=== PATIENT | female | born 1935 | race Caucasian/White ===

== ENCOUNTER → 2016-08-13 | Outpatient (CLI) | payer MEDICARE | END | disposition home or self-care (01) | LOC: RADNMMAIN 07:01 | PROVIDERS: ATTEND Internal Medicine Gastroenterology | DX: Z53.9 Procedure and treatment not carried out, unspecified reason (principal) ==

== ENCOUNTER → 2016-08-28 | Outpatient (CLI) | payer MEDICARE ==
[2016-08-28 13:45] LABS: Appearance,Urine Clear (Clear); Bilirubin,Urine Negative (Negative); Glucose,Urine (UA) Negative (Negative); Ketones,Urine Negative (Negative); Leukocyte Esterase,Urine Negative (Negative); Nitrite,Urine Negative (Negative); PH, Urine 7.5 (5.0-8.0); Protein,Urine Negative (Negative); Specific Gravity,Urine 1.018 (1.001-1.035); UA Billing (MACRO vs. MICRO) CHEM
[2016-08-28 13:48] LABS: Basophils % (A) 0 %; CH 28.4; CHCM 30.8; Eosinophils # (A) 0.4 k/uL (0-0.7); Eosinophils % (A) 6 %; HCT 37.4 % (34.0-46.0); HDW 2.47; HGB 11.9 gm/dL (11.4-16.0); Hypochromasia Slight; Luc # (Auto) 0.22; Luc % (Auto) 3; Lymphocytes # (A) 2.9 k/uL (1.0-4.8); Lymphocytes % (A) 40 %; MCH 29.6 pg (25.0-35.0); MCHC 31.9 g/dL (31.0-37.0); MCV 92.8 fL (80.0-100.0); Mean Platelet Volume 6.8; Monocytes # (A) 0.4 k/uL (0-1.0); Monocytes % (A) 5 %; Neutrophils # (A) 3.4 k/uL (1.3-7.7); Neutrophils % (A) 46 %; RBC 4.03 m/uL (3.80-5.40); RDW 14.8 % (11.5-15.5); WBC 7.3 k/uL (3.8-10.6); WBC (Perox) 7.48
--- NOTE | 2016-08-28 14:22 | CT ---
EXAMINATION TYPE: CT abdomen pelvis wo con DATE OF EXAM: 08/28/2016 1:28 PM COMPARISON: NONE INDICATION: Lower abdominal pain. Low back pain. DLP: 714 mGycm, Automated exposure control for dose reduction was used. CONTRAST: 0 mL of Omnipaque 300. Study performed without Oral Contrast TECHNIQUE: Axial images were obtained from above the diaphragm to the pubic rami in the axial plane a t 5 mm thick sections. Reconstructed images are reviewed on the computer in the coronal plane. FINDINGS: Limited CT sections are obtained the lung bases. The lung bases are clear. CT ABDOMEN: Liver: There are a few scattered calcified granuloma present. No discrete masses or cysts are evident . Spleen: Calcified granuloma within the spleen Pancreas: Normal Adrenal glands: The adrenal glands are normal. Gallbladder: Surgically absent Kidneys: No masses are evident. No hydronephrosis is present. There is a 0.2 cm calcification at th e inferior pole left kidney. A cortical calcification measuring 0.3 cm in the mid left kidney. Delay ed images were obtained through the kidneys, which remain unremarkable. Aorta: Vascular calcification is within the aorta. Inferior vena cava: Normal. CT PELVIS: Loops of bowel within the abdomen and pelvis are normal. Study is performed without oral contrast . Scattered diverticuli within the sigmoid colon. Appendix: Normal as visualized. Urinary bladder: Normal. Genitourinary structures: Uterus and ovaries are not identified. No free fluid is within the pelvis. Osseous structures: No suspicious lytic or sclerotic lesions. Postsurgical changes are within the lum bar spine. Scoliosis is present. IMPRESSIONS: 1. Nonobstructing left renal stones. 2. Diverticulosis without acute diverticulitis.
== END | disposition home or self-care (01) ==
LOC: RADCTMAIN 12:44
PROVIDERS: ATTEND Physical Medicine & Rehabilitation
DX: M96.1 Postlaminectomy syndrome, not elsewhere classified (principal); M51.17 Intervertebral disc disorders with radiculopathy, lumbosacral region; M46.1 Sacroiliitis, not elsewhere classified; M47.817 Spondylosis without myelopathy or radiculopathy, lumbosacral region; N20.0 Calculus of kidney
CPT/HCPCS: 36415; 74176; 81003; 85025; 87086

== ENCOUNTER → 2017-01-21 | Outpatient (CLI) | payer MEDICARE ==
[2017-01-21 12:46] LABS: Blood Urea Nitrogen 23 mg/dL (7-17); Non-African American GFR(MDRD) >60 (>60 ml/min/1.73 sqM)
--- NOTE | 2017-01-21 14:36 | CT ---
EXAMINATION TYPE: CT abdomen pelvis w con DATE OF EXAM: 01/21/2017 HISTORY: Patient complains of epigastric pain, nausea, and vomiting. CT DLP: 367.1mGycm Automated Exposure Control for Dose Reduction was Utilized. CONTRAST: CT scan of the abdomen and pelvis is performed with IV Contrast, patient injected with 100 mL of Omni paque 300. COMPARISON: None. FINDINGS: LUNG BASES: No significant abnormality is appreciated. Minimal subsegmental dependent atelectasis is incidentally noted. LIVER/GB: Gallbladder is surgically absent. Punctate granuloma is seen within the hepatic parenchyma. Remainder the hepatic parenchyma is unremarkable. PANCREAS: No significant abnormality is seen. SPLEEN: Scattered granulomas are seen within the splenic parenchyma. ADRENALS: No significant abnormality is seen. KIDNEYS: Punctate nonobstructing left midpole renal calculus is present on image 28. No evidence of h ydronephrosis within either kidney. BOWEL: Numerous loops of small bowel are seen stacked upon each other but are nondilated containing c ontrast throughout. The appendix is partially seen retrocecal and within normal limits. Moderate stoo l burden is appreciated. No pericolonic fat stranding is seen. LYMPH NODES: No greater than 1cm abdominal or pelvic lymph nodes are appreciated. VASCULATURE: Abdominal aorta is of normal course and caliber with moderate atheromatous changes of th e abdominal aorta and its branches. OSSEOUS STRUCTURES: No significant abnormality is seen. Scoliotic curvature, dextroconvex is seen of the lumbar spine with surgical fixation and degenerative changes. IMPRESSION: No evidence of bowel obstruction. Mild small bowel ileus is suggested. 2. Benign granulomatous changes of the spleen and abdomen. 3. Nonobstructing punctate left midpole renal calculus.
== END | disposition home or self-care (01) ==
LOC: RADCTMAIN 11:55
PROVIDERS: ATTEND Internal Medicine Gastroenterology
DX: N20.0 Calculus of kidney (principal); D73.89 Other diseases of spleen; K31.89 Other diseases of stomach and duodenum; R63.4 Abnormal weight loss
CPT/HCPCS: 82565; 84520; 74177; 36415; Q9967

== ENCOUNTER → 2018-04-03 | Outpatient (CLI) | payer MEDICARE ==
[~2018-04-03] MED LIST: REGADENOSON 0.4 MG/5 ML SYRINGE IV ONE
--- NOTE | 2018-04-03 11:56 | EST ---
EXERCISE STRESS DATE OF SERVICE: 04/03/2018 AGE: 82 SEX: Female HT: 5'0" WT: 115 pounds PROTOCOL: Lexiscan Cardiolite STAGE: DURATION OF EXERCISE: HEART RATE REST: 65 BLOOD PRESSURE REST: 145/66 MAXIMUM HEART RATE ACHIEVED: 89 MAXIMUM BLOOD PRESSURE: 155/59 85% MPHR: 117 100% MPHR: 138 METS: INDICATION: Shortness of breath. CLINICAL INFORMATION: Baseline EKG shows sinus rhythm, normal axis, normal intervals. Patient was given intravenous Lexiscan as per protocol. Did not have chest pain or diagnostic ST-segment depression. CONCLUSIONS: 1. Negative stress test by EKG criteria. 2. Cardiolite portion stress test will be reported separately. MMODL / IJN: [id number] /
--- NOTE | 2018-04-03 14:11 | NM ---
EXAMINATION TYPE: NM stress lexiscan cardiolite DATE OF EXAM: 04/03/2018 COMPARISON: NONE HISTORY: Shortness of breath hypertension difficulty in breathing TECHNIQUE: After the intravenous administration of 10.04 mCi Tc 99m Sestamibi - Cardiolite resting S PECT images acquired 45 minutes post injection. The patient received 0.4mg Lexiscan, 23.9 mCi Tc 99m Sestamibi - Stress images obtained [address] injection FINDINGS: No fixed or reversible perfusion defects are evident. Gated wall motion is normal. The ejection fract ion of 70% is normal. IMPRESSION: 1. Normal stress myocardial study.
== END | disposition home or self-care (01) ==
LOC: RADNMMAIN 07:54
PROVIDERS: ATTEND Nurse Practitioner Family
DX: R06.02 Shortness of breath (principal)
CPT/HCPCS: 93017; 78452; A9500; J2785

== ENCOUNTER → 2018-07-28 | Outpatient (CLI) | payer MEDICARE | END | disposition home or self-care (01) | LOC: CPPFTMAIN 14:25 | PROVIDERS: ATTEND Internal Medicine Cardiovascular Disease | DX: R94.2 Abnormal results of pulmonary function studies (principal); R06.02 Shortness of breath | CPT/HCPCS: 94060; 94726; 94729 ==

== ENCOUNTER 2019-03-10 12:11 | Day surgery (SDC) | payer MEDICARE ==
[2019-03-10 12:35] VITALS: TEMP 97.8
[2019-03-10 14:07] VITALS: BP 135/70; PULSE 66; RESP 16
--- NOTE | 2019-03-10 14:37 | US ---
EXAMINATION TYPE: US FNA first lesion, US biopsy lymph node DATE OF EXAM: 03/10/2019 HISTORY: Right neck mass. FINDINGS: Maximal barrier technique was utilized. The skin overlying a suitable path to the patient' s mass in the right neck was localized with ultrasound and the overlying skin prepped and draped. Ul trasound was utilized with sterile technique. Lidocaine was used for local anesthesia. A single pass with a 25-gauge needle and subsequently 21-gauge needle was made under ultrasound guidance into the mass and aspirated specimen submitted to cytology. A skin nadeem was made with a scalpel. An 18-gauge needle was advanced under direct ultrasound guidance and core specimen obtained of the mass, second c ore was made. Specimen submitted to Pathology. Following the procedure, hemostasis achieved and the patient is discharged in stable condition without complication. IMPRESSION:STATUS POST ULTRASOUND GUIDED CORE BIOPSY AND FINE-NEEDLE ASPIRATION OF right neck MASS, P ATHOLOGY IS PENDING. THIS PROCEDURE IS PERFORMED BY THE UNDERSIGNED.
--- NOTE | 2019-03-10 16:13 | US ---
EXAMINATION TYPE: US thyroid st tissue head/neck DATE OF EXAM: 03/10/2019 COMPARISON: NONE CLINICAL HISTORY: R22.1 Right Neck Mass. Lump right neck Multiple hypoechoic areas noted bilateral neck. Largest = 2.3 x 1.2 x 2.4cm on the right These are atypical for normal lymph nodes. Additional workup with contrast CT soft tissue neck is rec ommended. These could be metastatic lymph nodes. Complex cysts would be more unusual. IMPRESSION: Complex hypoechoic areas within the left neck are suspicious for abnormal lymphadenopath y. The patient is subsequently biopsied.
--- NOTE | 2019-03-16 08:20 | CDI ---
Date: 03.16.19 CDS/Scutcher Tender Name: Nellie Hogue Phone: If any questions, call Kourtney Go System Sales Consultant at [phone] Patient Name: Brenda Danielle Admit Date: 03.10.19 Discharge Date: 03.10.19 ATTENTION: The [facility] Coding Staff appreciate your assistance in clarifying documentation. Please respond to the clarification below the line at the bottom and electronically sign. The [facility] Coding staff will review the response and follow-up if needed. Please note: Queries are made part of the Legal Health Record. If you have any questions, please contact the System Sales Consultant. 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 Please specify the type of malignancy. Thank you for your kind consideration. MTDD
--- NOTE | 2019-03-18 10:19 | CDI ---
Date: 03.18.19 CDS/Program Director/Air Personality Name: Nellie Hogue Phone: If any questions, call Kourtney Go City Councilman at [phone] Patient Name: Brenda Danielle Acct Number: [id number] Admit date: 03.10.19 Discharge date: 03.10.19 ATTENTION: The [facility] Coding Staff appreciate your assistance in clarifying documentation. Please respond to the clarification below the line at the bottom and electronically sign. The [facility] Coding Staff will review the response and follow up if needed. Please note: Quereies are made part of the Legal Health Record. If you have any questions, please contact the City Councilman. Dear Dr. 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 Jain agrees with the diagnosis of malignancy, but the specific type of malignancy is not mentioned. Please specify the type of Malignancy. Thank you for your kind consideration. MTDD
== END 2019-03-10 14:00 | disposition home or self-care (01) ==
LOC: RADUSMAIN 12:11
PROVIDERS: ATTEND Otolaryngology
DX: R22.1 Localized swelling, mass and lump, neck (principal)
CPT/HCPCS: 10005; 38505; 76536; 76942; 88173; 88305

== ENCOUNTER → 2019-04-09 | Outpatient (CLI) | payer MEDICARE ==
[2019-04-09 10:24] LABS: African American GFR (CKD) >90 (>60 ml/min/1.73 sqM); Blood Urea Nitrogen 15 mg/dL (7-17)
--- NOTE | 2019-04-09 12:10 | CT ---
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 CT Chest: LUNGS: The lungs are clear and free of infiltrate or atelectasis. No pulmonary nodule or mass is det ected. No pleural effusion or CT evidence of interstitial lung disease. MEDIASTINUM: Thoracic aorta is of normal caliber. The heart is not enlarged. No evidence for media stinal mass or adenopathy. HILAR STRUCTURES: No evidence for mass. No hilar adenopathy is appreciated. OTHER: Multiple enlarged lymph nodes right axilla totaling 8-10 in number measuring up to 4.1 cm shor t axis. 1 enlarged lymph node left axilla measuring 1 cm. Adjacent to the left chest wall anteriorly there is an 8 mm nodule noted. CONTRAST CT ABDOMEN AND PELVIS FINDINGS: LIVER/GB: There is evidence of hepatic steatosis. No calcified gallstones. No space occupying hepa tic lesion. Biliary tree is of normal caliber. PANCREAS: No inflammation. No distinct mass. SPLEEN: No splenic enlargement. No lesion seen. ADRENALS: No nodule. No thickening. KIDNEYS/BLADDER: No hydronephrosis. No nephrolithiasis. No disctinct renal mass. BOWEL: Normal appendix. Normal bowel caliber. No inflammation. GENITAL ORGANS: No gross abnormality. LYMPH NODES: No greater than 1cm abdominal or pelvic lymph nodes are appreciated. AORTA: No significant abnormality. OSSEOUS STRUCTURES: Postoperative and degenerative changes lumbar spine. OTHER: No significant additional abnormality is seen. IMPRESSION: 1. Multiple enlarged lymph nodes right axilla totaling 8-10 in number measuring up to 4.1 cm short ax is. 1 enlarged lymph node left axilla measuring 1 cm. Adjacent to the left chest wall anteriorly ther e is an 8 mm nodule noted. 2. Hepatic steatosis.
== END | disposition home or self-care (01) ==
LOC: RADCTMAIN 09:00
PROVIDERS: ATTEND Internal Medicine Hematology & Oncology
DX: K76.0 Fatty (change of) liver, not elsewhere classified (principal); R22.2 Localized swelling, mass and lump, trunk; C91.10 Chronic lymphocytic leukemia of B-cell type not having achieved remission
CPT/HCPCS: 82565; 84520; 71260; 74177; 36415; Q9967 ×2

== ENCOUNTER 2019-05-14 00:38 | Observation (INO) | payer MEDICARE ==
[2019-05-14 00:50] LABS: Glucose,Whole Blood 136 mg/dL (75-99)
[2019-05-14 01:05] LABS: Basophils # (A) 0.2 k/uL (0-0.2); Basophils % (A) 2 %; Eosinophils # (A) 0.3 k/uL (0-0.7); Eosinophils % (A) 2 %; HCT 42.4 % (34.0-46.0); HGB 13.6 gm/dL (11.4-16.0); Lymphocytes # (A) 2.6 k/uL (1.0-4.8); Lymphocytes % (A) 18 %; MCH 30.4 pg (25.0-35.0); Mean Platelet Volume 7.5; Monocytes # (A) 0.7 k/uL (0-1.0); Monocytes % (A) 5 %; Neutrophils # (A) 9.9 k/uL (1.3-7.7); Neutrophils % (A) 71 %; Platelet Count 215 k/uL (150-450); RBC 4.46 m/uL (3.80-5.40)
[2019-05-14 01:15] LABS: ALT 10 U/L (4-34); AST 45 U/L (14-36); African American GFR (CKD) >90 (>60 ml/min/1.73 sqM); Albumin 4.3 g/dL (3.5-5.0); Alkaline Phosphatase 160 U/L (38-126); Anion Gap 11 mmol/L; Blood Urea Nitrogen 14 mg/dL (7-17); Calcium 9.4 mg/dL (8.4-10.2); Carbon Dioxide 21 mmol/L (22-30); Chloride 104 mmol/L (98-107); Glucose 141 mg/dL (74-99); Magnesium 1.4 mg/dL (1.6-2.3); Non-African American GFR(CKD) 88 (>60 ml/min/1.73 sqM); Potassium 4.2 mmol/L (3.5-5.1); Sodium 136 mmol/L (137-145); Total Bilirubin 0.9 mg/dL (0.2-1.3); Total Protein 7.2 g/dL (6.3-8.2)
[2019-05-14 01:16] LABS: Partial Thromboplastin Time 23.9 sec (22.0-30.0); Prothrombin Time 10.3 sec (9.0-12.0)
--- NOTE | 2019-05-14 01:23 | XR ---
EXAM: XR Chest, 1 View CLINICAL HISTORY: : fall TECHNIQUE: Frontal view of the chest. COMPARISON: No relevant prior studies available. FINDINGS: Lungs: Unremarkable. No consolidation. Pleural space: Unremarkable. No pneumothorax. Heart: Unremarkable. No cardiomegaly. Mediastinum: Unremarkable. Bones/joints: Unremarkable. IMPRESSION: No acute abnormality identified
[2019-05-14] MEDS ORDERED: levETIRAcetam IV 1,000 MG in SALINE 1 100ML.BAG IVPB STA (01:33)
[2019-05-14 01:35] VITALS: BP 173/93
--- NOTE | 2019-05-14 01:35 | CT ---
EXAM: CT Head Without Intravenous Contrast CLINICAL HISTORY: : weakness TECHNIQUE: Axial computed tomography images of the head/brain without intravenous contrast. CTDI is 45.2 mGy and DLP is 1335.5 mGy-cm. This CT exam was performed using one or more of the following dose reduction techniques: automated exposure control, adjustment of the mA and/or kV according to patient size, and/or use of iterative reconstruction technique. COMPARISON: No relevant prior studies available. FINDINGS: Brain: 1.7 mm midline shift from [id number] there is a 9 mm thick subdural collection on the left there is subarachnoid hemorrhage noted. There is a large parenchymal hematoma measures 5.5 x 5.8 x 4.5 cm with a total hematoma volume of 71 mL. Smaller parenchymal hemorrhage noted in the frontal lobe measuring 1 cm x 8 mm in size. There is effacement of the left lateral ventricle. There is subdural tentorial collection there are multiple punctate areas of hemorrhage noted on the right as well as in the parenchyma with a thin subdural collection measuring 4.5 mm at its thickest margin. Smaller Ventricles: Unremarkable. No ventriculomegaly. Bones/joints: Fracture of the left zygomatic arch and in the to the sphenoid wing on the left Soft tissues: Unremarkable. Sinuses: Air-fluid level noted in the left maxillary sinus no evidence for fracture of the [place] of maxillary sinus seen on the study. This may represent sinusitis changes.. Mastoid air cells: Unremarkable as visualized. No mastoid effusion. IMPRESSION: 1.7 mm of midline shift from [id number] with a 5.5 x 5.8 x 4.5 cm left temporal lobe and frontal lobe hematoma additionally there is a subdural collection measuring up to 9 mm thick on the left additionally subarachnoid hemorrhage and other areas of parenchymal hemorrhage noted both on the left and the right there is a thin subdural on the right measuring 4.5 mm thick at its thickest margin. Minimally displaced fracture left zygomatic arch with based minimally displaced fracture in the left sphenoid wing The mastoids are clear as is the tympanic space EXAM: CT Cervical Spine Without Intravenous Contrast CLINICAL HISTORY: weakness TECHNIQUE: Axial computed tomography images of the cervical spine without intravenous contrast. CTDI is 25.2 mGy and DLP is 1335.5 mGy-cm. This CT exam was performed using one or more of the following dose reduction techniques: automated exposure control, adjustment of the mA and/or kV according to patient size, and/or use of iterative reconstruction technique. COMPARISON: No relevant prior studies available. FINDINGS: Vertebrae: Unremarkable. No acute fracture. Discs/spinal canal/neural foramina: No acute findings. No spinal canal stenosis. Soft tissues: Extensive adenopathy in the left and right side of the neck and supraclavicular region with lymph nodes measuring up to 1.3 cm short axis and 2.2 cm long axes clinical correlation required IMPRESSION: No evidence for fracture or malalignment of cervical spine. Chronic degenerative changes. Extensive adenopathy noted in the neck and supraclavicular region. <MYCVCSECTION> Communications: 05/14/19 01:46 Call Doctor Regarding Intracranial Hemorrhage, called Dr. Sparrow on 05/14 01:46 (-05:00)
[2019-05-14 01:42] LABS: Appearance,Urine Clear (Clear); Bilirubin,Urine Negative (Negative); Blood,Urine Negative (Negative); Color,Urine Light Yellow; Glucose,Urine (UA) Negative (Negative); Ketones,Urine Negative (Negative); Leukocyte Esterase,Urine Negative (Negative); Nitrite,Urine Negative (Negative); Protein,Urine Negative (Negative); Specific Gravity,Urine 1.007 (1.001-1.035); Urobilinogen,Urine <2.0 mg/dL (<2.0)
[2019-05-14] MEDS ORDERED: MORPHINE SULFATE 4 MG/ML SYRINGE IVP STA ×2 (01:48→01:51)
[2019-05-14] MEDS ORDERED: LORazepam 2 MG/ML INJ IV STA (01:59)
[2019-05-14] MEDS: niCARdipine 20 MG in SODIUM CHLORIDE 0.9% 192 ML IV SCH ×2 (02:00→06:13)
--- NOTE | 2019-05-14 02:42 | ED ---
General Adult HPI - General Chief complaint: Trauma Stated complaint: unresponsive Time Seen by Provider: 05/14/19 00:40 Source: EMS, RN notes reviewed Mode of arrival: EMS Limitations: altered mental status, physical limitation - History of Present Illness Initial comments: 83-year-old female presents from home transported by EMS. Patient was found in her bedroom with significant amount of dried blood on the left side of her head carpet. His believe she had a dresser. Unknown down time. She had agonal respirations according to EMS was intubated by EMS prior to arrival. She was noted to have a nonreactive blown left pupil. No spontaneous movement according to EMS to painful stimuli. 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 Unknown how long the patient had been unresponsive - Related Data Home Medications Medication Instructions Recorded Confirmed Aspirin 81 mg PO DAILY 01/11/14 03/10/19 Metoprolol Succinate [Toprol XL] 50 mg PO DAILY 01/11/14 03/10/19 DULoxetine HCL [Cymbalta] 30 mg PO DAILY 01/03/15 03/10/19 Trolamine Salicylate [Aspercreme] 177.4 ml TP DAILY PRN 01/03/15 03/10/19 traMADol HCl [Ultram] 50 mg PO Q6H PRN 01/03/15 03/10/19 Acetaminophen [Tylenol] 500 mg PO Q4-6H PRN 01/04/15 03/10/19 Atorvastatin [Lipitor] 40 mg PO DAILY 02/22/19 03/10/19 Cholecalciferol [Vitamin D3 (25 1 tab PO DAILY 02/22/19 03/10/19 Mcg = 1000 Iu)] Ferrous Sulfate [Iron (65 MG 1 tab PO DAILY 02/22/19 03/10/19 Elemental)] Lisinopril [Zestril] 5 mg PO DAILY 02/22/19 03/10/19 Omeprazole 20 mg PO BID 02/22/19 03/10/19 Non Formulary Drug 1 each PO ONCE 03/10/19 03/10/19 Allergies Allergy/AdvReac Type Severity Reaction Status Date / Time No Known Allergies Allergy Verified 03/10/19 12:23 Review of Systems ROS Statement: Those systems with pertinent positive or pertinent negative responses have been documented in the HPI. ROS Other: All systems not noted in ROS Statement are negative. Past Medical History Past Medical History: Coronary Artery Disease (CAD), GERD/Reflux, Hyperlipidemia, Hypertension, Osteoarthritis (OA) History of Any Multi-Drug Resistant Organisms: None Reported Past Surgical History: Back Surgery, Breast Surgery, Cholecystectomy, Heart Catheterization With Stent, Hernia Repair, Hysterectomy, Tonsillectomy Additional Past Surgical History / Comment(s): breast reduction, back fusion w/rods, neurostimulator insertion and then removal Past Anesthesia/Blood Transfusion Reactions: No Reported Reaction Date of Last Stent Placement:: 1999 Past Psychological History: No Psychological Hx Reported Smoking Status: Former smoker Past Alcohol Use History: Daily Past Drug Use History: None Reported - Past Family History Brother(s) Family Medical History: Cancer Additional Family Medical History / Comment(s): lung General Exam Limitations: altered mental status, physical limitation General appearance: obtunded Head exam: Absent: atraumatic (large left frontal and temporal hematoma) Eye exam: Absent: PERRL (left pupil is 7 mm nonreactive,right pupil 3 mm and nonreactive) ENT exam: Present: other (significant amount of blood in the left naris, blood from around the ET tube) Respiratory exam: Present: respiratory distress (patient is being bagged by EMS, ET tube is at 25 cm at the lip, this is withdrawn. She has breath sounds bilaterally with BVM) Cardiovascular Exam: Present: normal rhythm, bradycardia GI/Abdominal exam: Present: soft. 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 ] Respiratory Rate Blood Pressure 141/75 Blood Pressure 169/105 155/103 [Right Arm] O2 Sat by Pulse 100 99 99 Oximetry 05/14/19 05/14/19 05/14/19 01:10 01:20 01:35 Pulse Rate Pulse Rate [ 82 76 79 Spinner [employer] Pipe ] Respiratory 05 06 12 Rate Blood Pressure Blood Pressure 138/78 189/104 173/93 [Right Arm] O2 Sat by Pulse 99 99 98 Oximetry 12/20/19 12/20/19 12/20/19 02:32 03:19 04:35 Pulse Rate 74 60 58 L Pulse Rate [ Spinner [employer] Pipe ] Respiratory 24 22 Rate Blood Pressure Blood Pressure [Right Arm] O2 Sat by Pulse Oximetry EKG Findings - EKG Comments: EKG Findings:: EKG likely sinus rhythm rate of 76, VA interval 132, QRS duration 82, QTC 423 Medical Decision Making - Medical Decision Making 83-year-old female presenting in extremis. Patient intubated by EMS with suspected intracranial hemorrhage. She has a nonreactive dilated left pupil. She has agonal respirations. She was posturing at the time of initial evaluation. Workup was initiated including head CT which shows very large i ntracranial hemorrhage with mass effect, midline shift both intraparenchymal, subarachnoid, subdural hemorrhages. I discussed this with the neuro interventionalist Dr. Cunningham, regarding prognosis as this was felt to be very poor prognosis. He agrees and recommends comfort measures. This was my initial feeling after seeing the patient's presentation and head CT. I discussed the case with the patient's daughter Jessica who is in [place], on multiple occasions regarding her mother's status and prognosis. we discussed surgical intervention for his comfort care. She agrees with plan for comfort c are. I also discussed this with the patient's stepdaughter who also agrees. Decision was made to extubate this patient and provide comfort measures. patient was observed in the emergency department she has agonal respirations but maintains blood pressure and heart rate. She's given morphine and Dilaudid as well as Ativan for comfort. diagnosis: Intracranial hemorrhage, herniation syndrome. Comfort care - Lab Data Result diagrams: 05/14/19 00:49 05/14/19 00:49 Lab Results 05/14/19 05/14/19 05/14/19 Range/Units 00:49 00:49 00:49 WBC 14.0 H (3.8-10.6) k/uL RBC 4.46 (3.80-5.40) m/uL Hgb 13.6 (11.4-16.0) gm/dL Hct 42.4 (34.0-46.0) % MCV 95.0 (80.0-100.0) fL MCH 30.4 (25.0-35.0) pg MCHC 32.0 (31.0-37.0) g/dL RDW 14.0 (11.5-15.5) % Plt Count 215 (150-450) k/uL Neutrophils % 71 % Lymphocytes % 18 % Monocytes % 5 % Eosinophils % 2 % Basophils % 2 % Neutrophils # 9.9 H (1.3-7.7) k/uL Lymphocytes # 2.6 (1.0-4.8) k/uL Monocytes # 0.7 (0-1.0) k/uL Eosinophils # 0.3 (0-0.7) k/uL Basophils # 0.2 (0-0.2) k/uL PT (9.0-12.0) sec INR (<1.2) APTT (22.0-30.0) sec Sodium 136 L (137-145) mmol/L Potassium 4.2 (3.5-5.1) mmol/L Chloride 104 (98-107) mmol/L Carbon Dioxide 21 L (22-30) mmol/L Anion Gap 11 mmol/L BUN 14 (7-17) mg/dL Creatinine 0.53 (0.52-1.04) mg/dL Est GFR (CKD-EPI)AfAm >90 (>60 ml/min/1.73 sqM) Est GFR (CKD-EPI)NonAf 88 (>60 ml/min/1.73 sqM) Glucose 141 H (74-99) mg/dL POC Glucose (mg/dL) (75-99) mg/dL POC Glu Roofer ID Lactic Ac Sepsis Rflx Plasma Lactic Acid Abhinav 2.4 H* (0.7-2.0) mmol/L Calcium 9.4 (8.4-10.2) mg/dL Magnesium 1.4 L (1.6-2.3) mg/dL Total Bilirubin 0.9 (0.2-1.3) mg/dL AST 45 H (14-36) U/L ALT 10 (4-34) U/L Alkaline Phosphatase 160 H (38-126) U/L Total Protein 7.2 (6.3-8.2) g/dL Albumin 4.3 (3.5-5.0) g/dL Urine Color Urine Appearance (Clear) Urine pH (5.0-8.0) Ur Specific Brethren (1.001-1.035) Urine Protein (Negative) Urine Glucose (UA) (Negative) Urine Ketones (Negative) Urine Blood (Negative) Urine Nitrite (Negative) Urine Bilirubin (Negative) Urine Urobilinogen (<2.0) mg/dL Ur Leukocyte Esterase (Negative) 05/14/19 05/14/19 05/14/19 Range/Units 00:49 00:49 01:24 WBC (3.8-10.6) k/uL RBC (3.80-5.40) m/uL Hgb (11.4-16.0) gm/dL Hct (34.0-46.0) % MCV (80.0-100.0) fL MCH (25.0-35.0) pg MCHC (31.0-37.0) g/dL RDW (11.5-15.5) % Plt Count (150-450) k/uL Neutrophils % % Lymphocytes % % Monocytes % % Eosinophils % % Basophils % % Neutrophils # (1.3-7.7) k/uL Lymphocytes # (1.0-4.8) k/uL Monocytes # (0-1.0) k/uL Eosinophils # (0-0.7) k/uL Basophils # (0-0.2) k/uL PT 10.3 (9.0-12.0) sec INR 1.0 (<1.2) APTT 23.9 (22.0-30.0) sec Sodium (137-145) mmol/L Potassium (3.5-5.1) mmol/L Chloride (98-107) mmol/L Carbon Dioxide (22-30) mmol/L Anion Gap mmol/L BUN (7-17) mg/dL Creatinine (0.52-1.04) mg/dL Est GFR (CKD-EPI)AfAm (>60 ml/min/1.73 sqM) Est GFR (CKD-EPI)NonAf (>60 ml/min/1.73 sqM) Glucose (74-99) mg/dL POC Glucose (mg/dL) 136 H (75-99) mg/dL POC Glu Roofer ID Tamara Chinchilla Lactic Ac Sepsis Rflx Y Plasma Lactic Acid Abhinav (0.7-2.0) mmol/L Calcium (8.4-10.2) mg/dL Magnesium (1.6-2.3) mg/dL Total Bilirubin (0.2-1.3) mg/dL AST (14-36) U/L ALT (4-34) U/L Alkaline Phosphatase (38-126) U/L Total Protein (6.3-8.2) g/dL Albumin (3.5-5.0) g/dL Urine Color Urine Appearance (Clear) Urine pH (5.0-8.0) Ur Specific Brethren (1.001-1.035) Urine Protein (Negative) Urine Glucose (UA) (Negative) Urine Ketones (Negative) Urine Blood (Negative) Urine Nitrite (Negative) Urine Bilirubin (Negative) Urine Urobilinogen (<2.0) mg/dL Ur Leukocyte Esterase (Negative) 05/14/19 Range/Units 01:31 WBC (3.8-10.6) k/uL RBC (3.80-5.40) m/uL Hgb (11.4-16.0) gm/dL Hct (34.0-46.0) % MCV (80.0-100.0) fL MCH (25.0-35.0) pg MCHC (31.0-37.0) g/dL RDW (11.5-15.5) % Plt Count (150-450) k/uL Neutrophils % % Lymphocytes % % Monocytes % % Eosinophils % % Basophils % % Neutrophils # (1.3-7.7) k/uL Lymphocytes # (1.0-4.8) k/uL Monocytes # (0-1.0) k/uL Eosinophils # (0-0.7) k/uL Basophils # (0-0.2) k/uL PT (9.0-12.0) sec INR (<1.2) APTT (22.0-30.0) sec Sodium (137-145) mmol/L Potassium (3.5-5.1) mmol/L Chloride (98-107) mmol/L Carbon Dioxide (22-30) mmol/L Anion Gap mmol/L BUN (7-17) mg/dL Creatinine (0.52-1.04) mg/dL Est GFR (CKD-EPI)AfAm (>60 ml/min/1.73 sqM) Est GFR (CKD-EPI)NonAf (>60 ml/min/1.73 sqM) Glucose (74-99) mg/dL POC Glucose (mg/dL) (75-99) mg/dL POC Glu Roofer ID Lactic Ac Sepsis Rflx Plasma Lactic Acid Abhinav (0.7-2.0) mmol/L Calcium (8.4-10.2) mg/dL Magnesium (1.6-2.3) mg/dL Total Bilirubin (0.2-1.3) mg/dL AST (14-36) U/L ALT (4-34) U/L Alkaline Phosphatase (38-126) U/L Total Protein (6.3-8.2) g/dL Albumin (3.5-5.0) g/dL Urine Color Light Yellow Urine Appearance Clear (Clear) Urine pH 5.0 (5.0-8.0) Ur Specific Brethren 1.007 (1.001-1.035) Urine Protein Negative (Negative) Urine Glucose (UA) Negative (Negative) Urine Ketones Negative (Negative) Urine Blood Negative (Negative) Urine Nitrite Negative (Negative) Urine Bilirubin Negative (Negative) Urine Urobilinogen <2.0 (<2.0) mg/dL Ur Leukocyte Esterase Negative (Negative) Critical Care Time Critical Care Time: Yes Total Critical Care Time: 35 Disposition Clinical Impression: Need for comfort care, ICH (intracerebral hemorrhage) Disposition: ADMITTED IP TO THIS [facility] Condition: Poor Is patient prescribed a controlled substance at d/c from ED?: No Referrals: Shyann Watters III, MD [Primary Care Provider] - 1-2 days Decision to Admit Reason: Admit from EC Decision Date: 05/14/19 Decision Time: 05:46
[2019-05-14] MEDS ORDERED: HYDROmorphone 1 MG/ML 1 ML SYRINGE IVP STA ×2 (02:43→04:36)
[2019-05-14] MEDS ORDERED: ONDANSETRON 4 MG/2 ML VIAL IVP PRN (05:38)
[2019-05-14] MEDS ORDERED: ARTIFICIAL TEARS-HYPROMELLOSE DROPS 15 ML BTL BOTH EYES PRN (05:38)
[2019-05-14] MEDS ORDERED: HYDROmorphone 1 MG/ML 1 ML SYRINGE IVP PRN (05:38)
[2019-05-14] MEDS ORDERED: DRY MOUTH SPRAY 44.3 SPRAY/44.3 ML SPRAY MUCOUS MEM PRN (05:38)
[2019-05-14] MEDS ORDERED: LORazepam 2 MG/ML INJ IV PRN (05:38)
[2019-05-14 10:48] VITALS: PULSE 68; RESP 26
[2019-05-14] MEDS: MORPHINE SULFATE 2 MG/ML SYRINGE IVP PRN ×2 (11:39→13:10)
--- NOTE | 2019-05-14 14:44 | P.HPIM ---
History of Present Illness 83-year-old female was admitted under my care for hospice and comfort care. Patient has been falling lately patient had few falls yesterday patient hit her head and found unresponsive patient is found to have intracranial bleed as per the request of the family including his spouse and daughter whose medical power of county attorney patient was made hospice subsequently admitted to my service patient was initially intubated patient is presently terminally extubated patient is on morphine, Dilaudid for pain and comfort along with Ativan as needed. Review of Systems irrelevant and unable to obtain Past Medical History Past Medical History: Coronary Artery Disease (CAD), GERD/Reflux, Hyperlipidemia, Hypertension, Osteoarthritis (OA) History of Any Multi-Drug Resistant Organisms: None Reported Past Surgical History: Back Surgery, Breast Surgery, Cholecystectomy, Heart Catheterization With Stent, Hernia Repair, Hysterectomy, Tonsillectomy Additional Past Surgical History / Comment(s): breast reduction, back fusion w/rods, neurostimulator insertion and then removal Past Anesthesia/Blood Transfusion Reactions: No Reported Reaction Date of Last Stent Placement:: 1999 Past Psychological History: No Psychological Hx Reported Smoking Status: Never smoker Past Alcohol Use History: Daily Additional Past Alcohol Use History / Comment(s): quit smoking 1969, smoked for 10 yrs. drinks one glass of wine per day Past Drug Use History: None Reported - Past Family History Brother(s) Family Medical History: Cancer Additional Family Medical History / Comment(s): lung Medications and Allergies Home Medications Medication Instructions Recorded Confirmed Type Metoprolol Succinate [Toprol XL] 50 mg PO DAILY 01/11/14 05/14/19 History DULoxetine HCL [Cymbalta] 30 mg PO DAILY 01/03/15 05/14/19 History traMADol HCl [Ultram] 50 mg PO Q6H PRN 01/03/15 05/14/19 History Atorvastatin [Lipitor] 40 mg PO DAILY 02/22/19 05/14/19 History Lisinopril [Zestril] 5 mg PO DAILY 02/22/19 05/14/19 History Omeprazole 20 mg PO BID 02/22/19 05/14/19 History Albuterol Nebulized [Ventolin 2.5 mg INHALATION RT-Q6H PRN 05/14/19 05/14/19 History Nebulized] Allergies Allergy/AdvReac Type Severity Reaction Status Date / Time No Known Allergies Allergy Verified 05/14/19 10:15 Physical Exam Vitals: Vital Signs Pulse Pulse Resp BP BP Pulse Ox 05/14/19 08:00 26 H 05/14/19 06:54 62 05/14/19 06:31 68 26 H 87 L 05/14/19 04:35 58 L 22 05/14/19 03:19 60 05/14/19 02:32 74 24 05/14/19 01:35 79 12 173/93 98 05/14/19 01:20 76 12 189/104 99 05/14/19 01:10 82 12 138/78 99 05/14/19 00:55 87 12 155/103 99 05/14/19 00:46 86 12 169/105 99 05/14/19 00:39 81 18 141/75 100 Intake and Output 05/13/19 05/14/19 05/14/19 22:59 06:59 14:59 Other: Voiding Method Indwelling Catheter Weight 54.431 kg PHYSICAL EXAMINATION: GENERAL: barely responsive agonal breathing, thin built female CARDIOVASCULAR: S1 and S2 present. No murmurs, rubs, or gallops. PULMONARY: bilateral rhonchi ABDOMEN: Soft, MUSCULOSKELETAL: No joint swelling or deformity. EXTREMITIES: No cyanosis, clubbing, or pedal edema. NEUROLOGICAL: Gross neurological examination did not reveal any focal deficits. SKIN: No rashes. Results CBC & Chem 7: 05/14/19 00:49 05/14/19 00:49 Labs: Abnormal Lab Results - Last 24 Hours (Table) 05/14/19 05/14/19 05/14/19 Range/Units 00:49 00:49 00:49 WBC 14.0 H (3.8-10.6) k/uL Neutrophils # 9.9 H (1.3-7.7) k/uL Sodium 136 L (137-145) mmol/L Carbon Dioxide 21 L (22-30) mmol/L Glucose 141 H (74-99) mg/dL POC Glucose (mg/dL) (75-99) mg/dL Plasma Lactic Acid Abhinav 2.4 H* (0.7-2.0) mmol/L Magnesium 1.4 L (1.6-2.3) mg/dL AST 45 H (14-36) U/L Alkaline Phosphatase 160 H (38-126) U/L 12/20/19 Range/Units 00:49 WBC (3.8-10.6) k/uL Neutrophils # (1.3-7.7) k/uL Sodium (137-145) mmol/L Carbon Dioxide (22-30) mmol/L Glucose (74-99) mg/dL POC Glucose (mg/dL) 136 H (75-99) mg/dL Plasma Lactic Acid Abhinav (0.7-2.0) mmol/L Magnesium (1.6-2.3) mg/dL AST (14-36) U/L Alkaline Phosphatase (38-126) U/L Thrombosis Risk Factor Assmnt - Choose All That Apply Each Factor Represents 1 point: Medical pt on bed rest Each Risk Factor Represents 2 Points: Patient confined to bed Other congenital or acquired thrombophilia - If yes, enter type in comment: No Thrombosis Risk Factor Assessment Total Risk Factor Score: 3 Thrombosis Risk Factor Assessment Level: Moderate Risk Assessment and Plan Plan: fall with intracranial frontal lobe hematoma, subdural hemorrhage with midline shift: Patient is presently under comfort care and hospice measures only.continue with as needed morphine and Ativan as needed.
[2019-05-14] MEDS ORDERED: ATROPINE OPHTH SOLN 1% 5ML BTL SUBLINGUAL PRN (17:13)
[2019-05-14] MEDS ORDERED: SCOPOLAMINE 1.5MG/72HR PATCH TRANSDERM SCH (17:15)
--- NOTE | 2019-05-21 16:19 | P.DS ---
Providers Date of admission: 05/14/19 05:38 Attending physician: Francis Arenas Primary care physician: Shyann Watters [facility] Course: Patient patient was inpatient hospice after intracranial hemorrhage secondary to fall please refer to nursing documentation for date and time of Patient Condition at Discharge: Poor Plan - Discharge Summary Discharge Rx Participant: No New Discharge Prescriptions: No Action Metoprolol Succinate [Toprol XL] 50 mg PO DAILY traMADol HCl [Ultram] 50 mg PO Q6H PRN PRN Reason: Pain DULoxetine HCL [Cymbalta] 30 mg PO DAILY Omeprazole 20 mg PO BID Lisinopril [Zestril] 5 mg PO DAILY Atorvastatin [Lipitor] 40 mg PO DAILY Albuterol Nebulized [Ventolin Nebulized] 2.5 mg INHALATION RT-Q6H PRN PRN Reason: Shortness Of Breath Discharge Medication List Metoprolol Succinate [Toprol XL] 50 mg PO DAILY 01/11/14 [History] DULoxetine HCL [Cymbalta] 30 mg PO DAILY 01/03/15 [History] traMADol HCl [Ultram] 50 mg PO Q6H PRN 01/03/15 [History] Atorvastatin [Lipitor] 40 mg PO DAILY 02/22/19 [History] Lisinopril [Zestril] 5 mg PO DAILY 02/22/19 [History] Omeprazole 20 mg PO BID 02/22/19 [History] Albuterol Nebulized [Ventolin Nebulized] 2.5 mg INHALATION RT-Q6H PRN 05/14/19 [History] Follow up Appointment(s)/Referral(s): Shyann Watters III, MD [Primary Care Provider] - 1-2 days Discharge Disposition: - Preliminary Cause of Preliminary Cause of : Intracranial hemorrhage
--- NOTE | 2019-05-24 11:04 | CDI ---
Documentation Clarification Form Date: 05/24/2019 10:39:10 AM From: Franci KENNEDY,CCDS,RN Admit Date: 05/14/2019 05:38:00 AM Patient Name: Brenda Danielle Visit Number: [id number] Discharge Date: 05/15/2019 12:01:00 AM ATTENTION: The Clinical Documentation Specialists (CDI) and [facility] Coding Staff appreciate your assistance in clarifying documentation. Please respond to the clarification below the line at the bottom and electronically sign. The CDI & [facility] Coding staff will review the response and follow-up if needed. Please note: Queries are made part of the Legal Health Record. If you have any questions, please contact the author of this message via ITS. Dr. Beckett Discharge summary notes pt after intracranial hemorrhage secondary to fall. History/Risk Factors: history of falling, noted to be unresponsive upon EMS arrival to home and intubated by EMS, ED notes significant amount of dried blood on left side of head , unknown downtime, no spontaneous movement. And non reactive left pupil Clinical indicators: ED and HP note On exam large left frontal and temporal hematoma, significant blood in left naris and blood from around ET tube. Extensor posturing noted 05/14/[address] of brain showed subdural fluid collection and subarachnoid hemorrhage with parenchymal hemorrhage. Minimally displaced fracture of left zygomatic arch with based minimally displaced fracture in the left sphenoid wing Treatment: Pt was made comfort measures and 05/15/2019 Clinical significance of diagnostic testing and treatment CANNOT be assumed or coded without physician documentation of significance if any. Please clarify clinical significance, if any, of CT findings of left sphenoid and left zygomatic arch fracture Left zygomatic and left sphenoid wing fracture due to Fall Unable to determine Other, please specify (Last Revision: February 2017) Patient was admitted to my service only for hospice services MTDD
--- NOTE | 2019-05-24 11:06 | CDI ---
Documentation Clarification Form Date: 05/24/2019 10:54:33 AM From: Franci KENNEDY,CCDS,RN Admit Date: 05/14/2019 05:38:00 AM Patient Name: Brenda Danielle Visit Number: [id number] Discharge Date: 05/15/2019 12:01:00 AM ATTENTION: The Clinical Documentation Specialists (CDI) and [facility] Coding Staff appreciate your assistance in clarifying documentation. Please respond to the clarification below the line at the bottom and electronically sign. The CDI & [facility] Coding staff will review the response and follow-up if needed. Please note: Queries are made part of the Legal Health Record. If you have any questions, please contact the author of this message via ITS. Dr. Katarina Beckett Documentation states 83 yo presented to ED unresponsive and intubated per ED notes, H&P 05/14/2019 notes pt was extubated and provided comfort care due to intracranial hemorrhage due to fall. History/Risk Factors: CAD with stent, GERD, Falls, presenting with posturing and blown pupil, CT of Brain showed midline shift and hemorrhages. Unknown downtime per ED and EMS record. Clinical indicators: agonal respiration, Bilateral rhonchi NA 136 CO2 21 with Lactic acid level 05/14 of 2.4 Abnormal lactic acid level of 2.4 Treatment: IV fluids , oxygenation and Bag valve ventilation in ED ,transitioned to comfort care Clinical significance of diagnostic testing and treatment CANNOT be assumed or coded without physician documentation of significance if any of lactic acid level 2.4 Lactic acidosis Abnormal lab not clinically significant Unable to determine Other, please specify (Last Revision: February 2017) Was already hospice by the time I evaluated the patient only dictated the conditions I treated MTDD
--- NOTE | 2019-06-03 13:36 | CDI ---
Date: 06/03/2019 From: Franci LUCIANON,CCDS,RN Admit Date: 05/14/2019 05:38:00 AM Patient Name: Brenda Danielle Visit Number: [id number] Discharge Date: 05/15/2019 12:01:00 AM ATTENTION: The Clinical Documentation Specialists (CDI) and [facility] Coding Staff appreciate your assistance in clarifying documentation. Please respond to the clarification below the line at the bottom and electronically sign. The CDI & [facility] Coding staff will review the response and follow-up if needed. Please note: Queries are made part of the Legal Health Record. If you have any questions, please contact the author of this message via ITS. Dr.M.Helmrecih LOCKWOOD Documentation states: pt after intracranial hemorrhage secondary to fall. History/Risk Factors: history of falling, noted to be unresponsive upon EMS arrival to home and intubated by EMS, ED notes significant amount of dried blood on left side of head , unknown downtime, no spontaneous movement. And non reactive left pupil Clinical indicators: On exam large left frontal and temporal hematoma, significant blood in left naris and blood from around ET tube. Extensor posturing noted Abnormal CT of brain showed subdural fluid collection and subarachnoid hemorrhage with parenchymal hemorrhage. Minimally displaced fracture of left zygomatic arch with based minimally displaced fracture in the left sphenoid wing Treatment: Pt was made comfort measures and Clinical significance of diagnostic testing and treatment CANNOT be assumed or coded without physician documentation of significance if any. Please clarify clinical significance, if any, of CT findings of left sphenoid and zygomatic arch fracture Left zygomatic and sphenoid wing fracture due to Fall Unable to determine Other, please specify (Last Revision: February 2017) MTDD
--- NOTE | 2019-06-03 13:38 | CDI ---
Documentation Clarification Form Date: 06/03/2019 0:54:33 AM From: Franci KENNEDY,CCDS,RN Admit Date: 05/14/2019 05:38:00 AM Patient Name: Brenda Danielle Visit Number: [id number] Discharge Date: 05/15/2019 12:01:00 AM ATTENTION: The Clinical Documentation Specialists (CDI) and [facility] Coding Staff appreciate your assistance in clarifying documentation. Please respond to the clarification below the line at the bottom and electronically sign. The CDI & [facility] Coding staff will review the response and follow-up if needed. Please note: Queries are made part of the Legal Health Record. If you have any questions, please contact the author of this message via ITS. Dr. Siu Documentation states 83 yo presented to ED unresponsive and intubated per ED notes, H&P 05/14/2019 notes pt was extubated and provided comfort care due to intracranial hemorrhage due to fall. History/Risk Factors: hx of CAD with stent, GERD, Falls, presenting with posturing and blown pupil, CT of Brain showed midline shift and hemorrhages. Unknown downtime per ED and EMS record. Clinical indicators: agonal respiration, Bilateral rhonchi NA 136 CO2 21 with Lactic acid level 05/14 of 2.4 Abnormal lactic acid level of 2.4 Treatment: IV fluids , oxygenation and Bag valve ventilation in ED ,transitioned to comfort care Clinical significance of diagnostic testing and treatment CANNOT be assumed or coded without physician documentation of significance if any of lactic acid level 2.4 Lactic acidosis Unable to determine Other, please specify (Last Revision: February 2017) MTDD
== END 2019-05-15 00:01 | disposition expired ==
LOC: EC 00:38 → INTOOBSV 05:38 → 5NMEDONC 05:38 → 4SSUR 13:11 → UNDODISIN 05-15 00:01
PROVIDERS: ADMIT Hospitalist; ATTEND Hospitalist
DX: Z51.5 Encounter for palliative care; E78.5 Hyperlipidemia, unspecified; I10 Essential (primary) hypertension; I25.10 Atherosclerotic heart disease of native coronary artery without angina pectoris; R29.6 Repeated falls; W19.XXXA Unspecified fall, initial encounter; Z79.82 Long term (current) use of aspirin; Z79.899 Other long term (current) drug therapy; Z87.891 Personal history of nicotine dependence; Z90.710 Acquired absence of both cervix and uterus; Z98.1 Arthrodesis status; Z90.49 Acquired absence of other specified parts of digestive tract; S02.19XA Other fracture of base of skull, initial encounter for closed fracture; S02.40FA Zygomatic fracture, left side, initial encounter for closed fracture; R40.2322 Coma scale, best motor response, extension, at arrival to emergency department; R40.2112 Coma scale, eyes open, never, at arrival to emergency department; R40.2212 Coma scale, best verbal response, none, at arrival to emergency department; Z95.5 Presence of coronary angioplasty implant and graft
CPT/HCPCS: 96376; 96374; 96375; 99291; 51702; 36415; 94002; 93005; 80053; 83605; 83735; 85025; 85610; 85730; 81003; 71045; 72125; 70450; G0378 ×2; J2060; J2270 ×2; J1170